=== PATIENT | male | born 2005 | race Hispanic/Latino ===

== ENCOUNTER 2025-01-07 16:29 | Emergency (ER) | payer SELFPAY ==
--- NOTE | 2025-01-07 16:57 | ED.GENMED ---
History of Present Illness
General
Chief Complaint: Crisis Evaluation
Time Seen by Provider: 01/07/25 16:57
History of Present Illness
History of Present Illness:
TIME OF INITIAL ENCOUNTER: 5 PM
HPI: I reviewed the EMS report. The patient reportedly was at a bus stop after being released from rehab 2 days ago. While at the bus stop today, he felt like he wanted to . He thought about jumping out in front of traffic. He has a history
of meth use which is why he was at [facility] up until 2 days ago. However, when I ask him currently, he denies thoughts of harming himself. He does however have no place to go. He tried to get emergency housing but could not. He is originally from
[place], [place] but is not on speaking terms with his family.
EXAM:
GENERAL: Well appearing in no distress, but appears somewhat disheveled, odor of marijuana noted but he does not appear particularly intoxicated and gives a seemingly reliable history
HEENT: Moist oral mucosa
CARDIOVASCULAR: No murmurs, normal heart rate, regular rhythm, No chest wall tenderness
PULMONARY: No respiratory distress, breath sounds are clear and equal
ABDOMEN: Soft with no peritoneal signs, no tenderness
NEUROLOGIC: Excellent strength all extremities, no coordination deficits
PSYCHIATRIC: Appropriate mental status, normal insight and judgement
EXTREMITIES: Nontender, no edema, moves all extremities equally
SKIN: No rash, no lesions
NUMBER AND COMPLEXITY OF PROBLEMS ADDRESSED AT THE ENCOUNTER
� Chronic conditions affecting care: ADHD, anxiety/depression, PTSD, meth use
� Acute Exacerbation and/or Progression of Chronic Illness: This is an acute problem
� Differential Diagnosis includes: Suicidal ideation, homelessness, resolved suicidal ideation, 'SI' for secondary gain (currently homeless)
AMOUNT AND/OR COMPLEXITY OF DATA TO BE REVIEWED AND ANALYZED
� I performed an independent evaluation of and my interpretation is:
EKG:
CT:
X-rays:
Laboratory Studies: Salicylates, Tylenol, alcohol are all undetected, chemistries unremarkable, CBC normal, UDS positive for marijuana
Other:
� Review of other/old records: No old records available for review in [facility]
� Clinical information was obtained by an independent historian: I reviewed the EMS note as summarized in the HPI
� Prescriptions/Medications Considered but not given:
� Further testing considered but not performed:
RISK OF COMPLICATIONS AND/OR MORBIDITY OR MORTALITY OF PATIENT MANAGEMENT
� Social determinants of health affecting care: Is homeless, originally from [facility], does not speak to his family
� Discussion with other providers: At 5:05 PM, I spoke to crisis and asked for consult.
� Escalation of care including admission/observation vs risk of discharge considered: Liz initially indicated his family will pick him up tomorrow. However in reassessment of the patient at 6:10 PM, he tells me that his friend,
Rufino, phone number [phone] will be the one picking them up. I spoke to Rufino who tells me that he will be here around 9:45 AM. The patient currently denies any suicidal thoughts. However he has no other place to go and I feel would be safe
for him to stay here tonight.
ANY OTHER UPDATES:
9:30 PM: As of now, I have canceled the one-to-one observation. He was seen by crisis earlier. He is medically cleared. He will stay in the Emergency Department tonight until his friend picks him up from [place] tomorrow morning.
Phy Exam
Physical Exam
Physical Exam:
See HPI
Course
Orders/Labs/Results
Orders:
Orders
01/07/25 16:39
Crisis Consult Urgent
Reason for Consult: SI after being released from an 8pa program
01/07/25 16:53
Acetaminophen Urgent
Alcohol Urgent
Basic Metabolic Panel Urgent
Complete Blood Count/With Diff Urgent
Salicylate Urgent
Urine Drug Abuse Screen Urgent
Date Specimen was Collected: 01/07/25
Time Specimen was Collected: 16:45
Abnormal Lab Results
01/07/25
16:53
MCHC 32.9 L g/dL
(33.0-37.0)
Absolute Monos (auto) 0.7 H 10^3/uL
(0.1-0.6)
Monocytes % 9.7 H %
(1.7-9.3)
Salicylates < 1.0 L mg/dl
(2.0-20.0)
Acetaminophen < 10 L ug/ml
(10-30)
U Marijuana (THC) Screen Positive H
(Negative)
01/07/25 16:53
01/07/25 16:53
Vital Signs
Initial and Last Documented VS:
Initial Vital Signs
Temp Pulse Resp Pulse Ox
36.8 C 90 18 97
01/07/25 16:42 01/07/25 16:42 01/07/25 16:42 01/07/25 16:42
Last Documented Vital Signs
Temp Pulse Resp BP Pulse Ox
36.3 C 83 18 116/73 96
01/07/25 18:35 01/07/25 18:35 01/07/25 18:35 01/07/25 18:35 01/07/25 18:35
*Critical Care Note
Total Time (30-74mins, 75-104mins- exclusive of procedures): Not Applicable
ED Attending Note
-
Portions of this chart may have been created with voice recognition software.� Occasional wrong word or��sound alike� substitutions may have occurred due to the inherent limitations of voice recognition software.
Discharge Plan
Departure
Patient Disposition: Home (Routine Discharge)
Date of Disposition: 01/07/25
Time of Disposition: 18:19
Patient with high blood pressure during this ER visit?: Yes
Discharge Problem:
Depression
Instructions: Depression, Adult (DC)
Referrals:
PRIVATE,PHYSICIAN [Family Provider] -
Activity Restrictions/Additional Instructions:
I recommend that you follow-up with your primary care doctor when you to get back to [place]. Return here if worse or go to any local emergency department if these thoughts recur.
Interventions
Interventions:
*Risk Screen - Suicide Last Done: 01/07/25 16:38
*Neglect/Abuse Screening Last Done: 01/07/25 16:44
*ED COVID-19 Vaccine History Last Done: 01/07/25 16:44
ED-Psychological Assessment Last Done: 01/07/25 19:43
Discharge Date and Time
Print Language: MOSOTHO
[2025-01-07 17:14] LABS: % Basophils 0.1 % (0-2); % Eosinophils 1.1 % (0-6); % Immature Granulocytes 0.4 % (0-0.5); % Lymphocytes 21.8 % (20.5-51.1); % Monocytes 9.7 % (1.7-9.3); % Neutrophils 66.9 % (42.2-75.2); Absolute Eosinophils 0.1 10^3/uL (0-0.7); Absolute Lymphocytes 1.5 10^3/uL (1.2-3.4); Absolute Monocytes 0.7 10^3/uL (0.1-0.6); Absolute Neutrophils 4.7 10^3/uL (1.4-6.5); Hematocrit 41.3 % (39.0-52.0); Hemoglobin 13.6 g/dL (13.0-18.0); Mean Corp Hgb Conc. 32.9 g/dL (33.0-37.0); Mean Corpuscular Hgb 28.5 pg (27.0-31.0); Mean Corpuscular Volume 86.6 fL (80.0-94.0); Mean Platelet Volume 9.5 fL (7.4-10.4); Nucleated Red Blood Cells % 0 % (-); Platelet Count 296 10^3/uL (130-400); Red Blood Cell Count 4.77 10^6/uL (4.70-6.10); Red Cell Dist. Width 13.6 % (11.5-14.5)
[2025-01-07 17:22] LABS: Acetaminophen < 10 ug/ml (10-30); Alcohol None Detected; Blood Urea Nitrogen 17 mg/dl (9-20); Calcium 9.3 mg/dl (8.4-10.2); Carbon Dioxide 27 mmol/L (22-30); Chloride 105 mmol/L (98-107); Glucose 99 mg/dl (70-99); Potassium 4.2 mmol/L (3.5-5.1); Salicylate < 1.0 mg/dl (2.0-20.0); Sodium 141 mmol/L (135-145); eGFR > 60.00
[2025-01-07 17:55] LABS: Amphetamines Negative (Negative); Barbiturates Negative (Negative); Benzodiazepines Negative (Negative); Buprenorphine Negative (Negative); Cocaine Negative (Negative); Marijuana Positive (Negative); Methadone Negative (Negative); Methamphetamines Negative (Negative); Opiates Negative (Negative); Phencyclidine Negative (Negative); Tricyclic Antidepressants Negative (Negative)
[2025-01-07 18:35] VITALS: BP 116/73
--- NOTE | 2025-01-08 07:35 | EDRN ---
call to greg at provided number.. no . VM left.
--- NOTE | 2025-01-08 07:37 | EDRN ---
call placed to father who is listed as contact info-- vm left as well as there was no answer
--- NOTE | 2025-01-08 08:36 | EDRN ---
spoke with Sergei Joy' who is kassandra
== END 2025-01-08 09:25 | disposition home or self-care (01) ==
LOC: EMR 16:29
PROVIDERS: Emergency Medicine; EMERGENCY PHYSICIAN Emergency Medicine
DX: F32.A Depression, unspecified (principal); R03.0 Elevated blood-pressure reading, without diagnosis of hypertension; Z59.00 Homelessness unspecified
CPT/HCPCS: 99283; 80048; 80143; 80179; 80306; 82077; 85025